=== PATIENT | female | born 1970 | race Caucasian/White ===

== ENCOUNTER 2021-03-18 09:00 | Outpatient (RCR) | payer OTHER, SELFPAY | END 2021-08-05 12:51 | disposition home or self-care (01) | LOC: HO.PTWFD 09:00 | PROVIDERS: PCP Pediatrics; Visit Provider Physician Assistant | DX: M62.50 Muscle wasting and atrophy, not elsewhere classified, unspecified site (principal); M17.0 Bilateral primary osteoarthritis of knee | CPT/HCPCS: 97014; 97035; 97110; 97116; 97140; 97161; 97535 ==

== ENCOUNTER 2021-03-22 07:29 | Outpatient (REF) | payer OTHER, SELFPAY ==
--- NOTE | ~2021-03-22 | XR_ITS ---
EXAMINATION: XR AP STANDING VIEW KNEES. XR KNEE, LEFT. CLINICAL INFORMATION: Knee pain. COMPARISON: None. TECHNIQUE: AP standing view both knees. Lateral and sunrise views of the left knee. FINDINGS: Moderate lateral compartment and mild patellofemoral compartment osteoarthritis of the left knee with a moderate joint effusion. No fracture. Minimal marginal osteophyte formation of the medial and lateral compartments of the right knee on the AP standing view. XR/XR knee LT 3V IMPRESSION: Moderate lateral compartment and mild patellofemoral compartment osteoarthritis of the left knee with a moderate joint effusion. Mild degenerative changes of the right knee. No acute abnormality.
--- NOTE | ~2021-03-22 | XR_ITS ---
EXAMINATION: XR AP STANDING VIEW KNEES. XR KNEE, LEFT. CLINICAL INFORMATION: Knee pain. COMPARISON: None. TECHNIQUE: AP standing view both knees. Lateral and sunrise views of the left knee. FINDINGS: Moderate lateral compartment and mild patellofemoral compartment osteoarthritis of the left knee with a moderate joint effusion. No fracture. Minimal marginal osteophyte formation of the medial and lateral compartments of the right knee on the AP standing view. XR/XR knee standing BI IMPRESSION: Moderate lateral compartment and mild patellofemoral compartment osteoarthritis of the left knee with a moderate joint effusion. Mild degenerative changes of the right knee. No acute abnormality.
== END 2021-03-22 07:30 | disposition home or self-care (01) ==
LOC: HO.HOSX 07:29
PROVIDERS: Visit Provider Physician Assistant
DX: M17.12 Unilateral primary osteoarthritis, left knee (principal)
CPT/HCPCS: 20610; 73562; 73565; J1040; J1885

== ENCOUNTER → 2021-06-27 15:33 | Outpatient (BNVA) | payer OTHER, SELFPAY | PROVIDERS: PCP Pediatrics; Visit Provider Physician Assistant | DX: M17.12 Unilateral primary osteoarthritis, left knee (principal) | CPT/HCPCS: 20610; J1040 ==

== ENCOUNTER → 2022-03-24 10:29 | Outpatient (BNVA) | payer OTHER, SELFPAY | PROVIDERS: PCP Pediatrics; Visit Provider Physician Assistant | DX: M17.12 Unilateral primary osteoarthritis, left knee (principal) | CPT/HCPCS: 20610; J1040 ==

== ENCOUNTER 2022-10-31 08:53 | Outpatient (REF) | payer OTHER, SELFPAY ==
[2022-10-31 11:06] LABS: MANUAL DIFF FLAG NO
[2022-10-31 11:29] LABS: Basophils Absolute Auto 0.1 X10*3/uL (0.0-0.2); Basophils Percent Auto 0.8 % (0-2); Eosinophils Absolute Auto 0.1 X10*3/uL (0.0-0.4); Eosinophils Percent Auto 0.8 % (0-4); Hematocrit 41.7 % (37.0-47.0); Hemoglobin 14.2 g/dl (12.0-16.0); Imm Gran Abs Auto 0.03 X10*3/uL (0.00-0.03); Imm Gran Pct Auto 0.4 % (0.0-0.4); Lymphocytes Absolute Auto 1.7 X10*3/uL (1.2-4.9); Lymphocytes Percent Auto 22.8 % (20-40); Mean Corpuscular HGB Conc 34.1 g/dl (31.0-35.0); Mean Corpuscular Hemoglobin 32.7 pg (27.0-33.0); Mean Corpuscular Volume 96.1 fL (80.0-98.0); Mean Platelet Volume 10.9 fL (9.4-12.3); Monocytes Absolute Auto 0.4 X10*3/uL (0.1-1.2); Monocytes Percent Auto 5.2 % (2-11); Neutrophils Absolute Auto 5.3 x10*3/uL (2.0-8.3); Platelet Count 248 X10*3/uL (160-400); Red Blood Count 4.34 X10*6/uL (4.20-5.50); Red Cell Distribution Width 12.1 % (11.0-16.0); White Blood Count 7.5 X10*3/uL (4.8-10.8)
[2022-10-31 12:31] LABS: Alanine Aminotransferase 25 U/L (0-31); Albumin Level 4.4 g/dL (3.5-5.0); Alkaline Phosphatase 80 U/L (39-117); Anion Gap 19 (12-20); Aspartate Amino Transferase 41 U/L (5-31); Bilirubin Total 0.6 mg/dL (0.0-1.0); Blood Urea Nitrogen 14 mg/dL (9-16); Calcium 9.5 mg/dL (8.4-10.2); Carbon Dioxide 23 mmol/L (22-29); Chloride 103 mmol/L (96-108); Cholesterol 225 mg/dL; Estimated Glomerular Filt Rate > 60; Glucose Random 103 mg/dL (60-115); HDL Cholesterol 62 mg/dL; LDL Cholesterol Calculated 147 mg/dl; Potassium 4.8 mmol/L (3.3-5.1); Rheumatoid Factor < 13.0 IU/mL (<15.0); Sodium 140 mmol/L (135-145); Total Protein 7.4 g/dL (6.5-8.0); Triglycerides 81 mg/dL
[2022-10-31 12:35] LABS: Thyroid Stimulating Hormone 1.34 uIU/mL (0.32-4.0); Vitamin B12 377 pg/mL (200-900); Vitamin D 25-OH Total 24.3 ng/mL (>30)
[2022-11-01 22:33] LABS: Antibody to SS-A Antigen <1.0 NEG AI (<1.0 NEG); Antibody to SS-B Antigen <1.0 NEG AI (<1.0 NEG)
[2022-11-05 10:28] LABS: ANA Pattern 2 Nuclear, Centromere; Anti Nuclear Antibody Screen POSITIVE (NEGATIVE)
== END 2022-10-31 08:54 | disposition home or self-care (01) ==
LOC: HO.MANLDS 08:53
PROVIDERS: Visit Provider Internal Medicine
DX: Z00.00 Encounter for general adult medical examination without abnormal findings (principal); H35.81 Retinal edema
CPT/HCPCS: 36415; 80053; 80061; 82306; 82607; 84443; 85025; 86038; 86039; 86235; 86431